=== PATIENT | female | born 1950 | race African-American/Black ===

== ENCOUNTER 2022-01-23 07:28 | Day surgery (SDC) | payer MEDICARE ==
[2022-01-18 16:58] LABS: Hemoglobin 11.8 g/dL (12.0-15.5); Mean Corpuscular HGB CONC 31.9 g/dL (32.0-36.0); Mean Corpuscular Volume 84.7 fl (81.6-98.3); Platelet Count 262 10x3/uL (150-450); Red Blood Cell (RBC) Count 4.37 10x6/uL (3.90-5.03); White Blood Cell (WBC) Count 7.7 10x3/uL (3.5-10.5)
[2022-01-18 16:59] LABS: Anion Gap 18 mmol/L (10-20); BUN (Urea Nitrogen) 17 mg/dL (9.8-20.1); Calc. Creatinine Clearance 0 mL/min (70-130); Calcium 9.3 mg/dL (7.8-10.44); Carbon Dioxide 22 mmol/L (23-31); Chloride 105 mmol/L (98-107); Glucose 109 mg/dL (80-115); Potassium 4.1 mmol/L (3.5-5.1); Sodium 141 mmol/L (136-145)
[2022-01-21 14:01] VITALS: BMI 53.1
[2022-01-23] MEDS ORDERED: Lidocaine 1% MPF 2 ML VIAL ONE (07:47)
[2022-01-23] MEDS ORDERED: CeleCOXIB 100 MG CAP ONE (07:55)
[2022-01-23] MEDS ORDERED: Famotidine/PF 20 mg/2ml Vial ONE (07:55)
[2022-01-23] MEDS ORDERED: Gabapentin 300 MG CAP ONE (07:55)
[2022-01-23] MEDS ORDERED: CEFAZOLIN 2 GM VIAL ONE (08:24)
[2022-01-23] MEDS ORDERED: Midazolam HCl 2 mg/2 ml Vial ONE (08:32)
[2022-01-23] MEDS ORDERED: Dexamethasone 20 MG/5 ML VIAL ONE (08:32)
[2022-01-23] MEDS ORDERED: Ondansetron PF 4 MG/2 ML Vial ONE (08:32)
[2022-01-23] MEDS ORDERED: Lidocaine 1% PF 5 ML VIAL ONE (08:32)
[2022-01-23] MEDS ORDERED: PROPOFOL 20 ML ONE (08:32)
[2022-01-23] MEDS ORDERED: Fentanyl 100 MCG/2 ML VIAL ONE (08:32)
== END 2022-01-23 12:00 | disposition home or self-care (01) ==
LOC: CSHSDC 07:28
PROVIDERS: ATTEND Obstetrics & Gynecology
PROC: 0UB98ZX Excision of Uterus, Via Natural or Artificial Opening Endoscopic, Diagnostic (ICD-10-PCS; principal; 2022-01-23)
DX: N84.0 Polyp of corpus uteri (principal); N71.0 Acute inflammatory disease of uterus; N95.0 Postmenopausal bleeding; D25.9 Leiomyoma of uterus, unspecified; I48.20 Chronic atrial fibrillation, unspecified; I12.9 Hypertensive chronic kidney disease with stage 1 through stage 4 chronic kidney disease, or unspecified chronic kidney disease; N18.9 Chronic kidney disease, unspecified; E66.01 Morbid (severe) obesity due to excess calories; Z68.43 Body mass index [BMI] 50.0-59.9, adult; Z79.899 Other long term (current) drug therapy; Z20.822 Contact with and (suspected) exposure to COVID-19
CPT/HCPCS: 58558; 80048; 85027; 86850; 86900; 86901; U0003; U0005; 88305; J0690; J1100; J2250; J2405; J2704; J3010; S0028

== ENCOUNTER 2024-04-13 06:39 | Day surgery (SDC) | payer MEDICARE ==
[2024-04-08 14:18] VITALS: BMI 51.7
[2024-04-13] MEDS ORDERED: Ketorolac Tromethamine 30 MG (1 mL) VIAL ONE (07:33)
[2024-04-13] MEDS ORDERED: Acetaminophen 500 MG TAB ONE (07:33)
[2024-04-13] MEDS ORDERED: Lidocaine 2% PF 5 ML VIAL ONE (09:18)
[2024-04-13] MEDS ORDERED: Rocuronium Bromide 10 MG/ML (10ML VIAL) ONE (09:18)
[2024-04-13] MEDS ORDERED: Lidocaine 4% PF 5 ML AMP ONE (09:18)
[2024-04-13] MEDS ORDERED: Dexamethasone 20 MG/5 ML VIAL ONE (09:18)
[2024-04-13] MEDS ORDERED: Ondansetron PF 4 MG/2 ML Vial ONE (09:18)
[2024-04-13] MEDS ORDERED: PROPOFOL 20 ML ONE (09:19)
[2024-04-13] MEDS ORDERED: Bupivacaine/Epinephrine 0.25% 30 ML VIAL ONE (09:33)
[2024-04-13] MEDS ORDERED: CEFAZOLIN 2 GM VIAL ONE (09:47)
[2024-04-13] MEDS ORDERED: fentaNYL 50 mcg/mL 1 mL Vial ONE ×2 (09:52→12:22)
[2024-04-13] MEDS ORDERED: ePHEDrine Sulfate 50 MG/10 ML VIAL ONE (10:55)
[2024-04-13] MEDS ORDERED: SUGAMMADEX SODIUM 200 MG/2 ML VIAL ONE (11:20)
== END 2024-04-13 13:50 | disposition home or self-care (01) ==
LOC: CSHSDC 06:39
PROVIDERS: ATTEND Specialist
PROC: 0WUF4JZ Supplement Abdominal Wall with Synthetic Substitute, Percutaneous Endoscopic Approach (ICD-10-PCS; principal; 2024-04-13)
DX: K42.9 Umbilical hernia without obstruction or gangrene (principal); E66.01 Morbid (severe) obesity due to excess calories; I10 Essential (primary) hypertension; I48.91 Unspecified atrial fibrillation; F41.9 Anxiety disorder, unspecified; M06.9 Rheumatoid arthritis, unspecified; Z98.890 Other specified postprocedural states; Z79.899 Other long term (current) drug therapy; Z68.43 Body mass index [BMI] 50.0-59.9, adult
CPT/HCPCS: 49593; A6258; C1781; J1100; J1885; J2001; J2405; J2704; J3010